=== PATIENT | female | born 1995 | race Caucasian/White ===

== ENCOUNTER 2017-01-13 17:29 | Emergency (ER) | payer OTHER ==
[~2017-01-13] VITALS: Ht 124.4 cm; Wt 43.5 kg
[2017-01-13] MEDS ORDERED: CLINDAMYCIN HC300 MG PO (19:04)
== END 2017-01-13 19:09 | disposition home or self-care (01) ==
LOC: ED 17:29
DX: J02.0 Streptococcal pharyngitis (principal); Z88.0 Allergy status to penicillin

== ENCOUNTER 2017-08-11 17:12 | Emergency (ER) | payer OTHER ==
[~2017-08-11] VITALS: Ht 149.8 cm; Wt 40.8 kg
[~2017-08-11 17:12] MED LIST: CLINDAMYCIN HC300 MG PO
[2017-08-11] MEDS ORDERED: OMNICEF300 MG PO (17:32)
== END 2017-08-11 17:26 | disposition home or self-care (01) ==
LOC: ED 17:12
DX: H66.92 Otitis media, unspecified, left ear (principal); R03.0 Elevated blood-pressure reading, without diagnosis of hypertension; Z88.0 Allergy status to penicillin

== ENCOUNTER 2017-09-13 19:05 | Emergency (ER) | payer OTHER ==
[~2017-09-13] VITALS: Ht 149.8 cm; Wt 41.7 kg
[~2017-09-13 19:05] MED LIST changes: +OMNICEF300 MG PO
== END 2017-09-13 21:57 | disposition home or self-care (01) ==
LOC: ED 19:05
DX: S00.83XA Contusion of other part of head, initial encounter (principal); Z88.0 Allergy status to penicillin; V49.9XXA Car occupant (driver) (passenger) injured in unspecified traffic accident, initial encounter; Y93.89 Activity, other specified; Y92.89 Other specified places as the place of occurrence of the external cause; Y99.8 Other external cause status

== ENCOUNTER 2018-02-16 15:47 | Emergency (ER) | payer OTHER ==
[~2018-02-16] VITALS: Ht 149.8 cm; Wt 43.1 kg
[2018-02-16] MEDS ORDERED: EFFEXOR XR75 M1 PO (15:52)
[2018-02-16] MEDS ORDERED: [UNRECOGNIZED DRUG - REMARK] PO (15:53)
[2018-02-16] MEDS ORDERED: VIBRAMYCIN100 MG PO (16:16)
[2018-02-16] MEDS ORDERED: LIDEX 0.05% CRE15 GM T (16:16)
== END 2018-02-16 16:29 | disposition home or self-care (01) ==
LOC: ED 15:47
DX: S80.262A Insect bite (nonvenomous), left knee, initial encounter (principal); Z88.0 Allergy status to penicillin; Z79.899 Other long term (current) drug therapy; W57.XXXA Bitten or stung by nonvenomous insect and other nonvenomous arthropods, initial encounter; Y93.89 Activity, other specified; Y92.89 Other specified places as the place of occurrence of the external cause; Y99.8 Other external cause status

== ENCOUNTER 2018-07-22 17:41 | Emergency (ER) | payer OTHER ==
[~2018-07-22] VITALS: Wt 42.6 kg
[~2018-07-22 17:41] MED LIST changes: +EFFEXOR XR75 M1 PO; +LIDEX 0.05% CRE15 GM T; +VIBRAMYCIN100 MG PO; +[UNRECOGNIZED DRUG - REMARK] PO
[2018-07-22] MEDS ORDERED: FLONASE ALLERG9.9 ML NAS (17:46)
[2018-07-22] MEDS ORDERED: PREDNISONE10 MG PO (17:46)
[2018-07-22] MEDS ORDERED: CLARITIN10 MG PO (17:46)
[2018-08-08] MEDS ORDERED: ZYRTEC10 MG PO (19:09)
[2018-08-08] MEDS ORDERED: ZITHROMAX250 MG PO (19:09)
== END 2018-07-22 17:53 | disposition home or self-care (01) ==
LOC: ED 17:41
DX: B34.9 Viral infection, unspecified (principal); R03.0 Elevated blood-pressure reading, without diagnosis of hypertension; Z88.0 Allergy status to penicillin; Z79.899 Other long term (current) drug therapy

== ENCOUNTER 2022-02-11 21:31 | Emergency (ER) | payer OTHER ==
[~2022-02-11] VITALS: Ht 149.8 cm; Wt 47.6 kg
[~2022-02-11 21:31] MED LIST changes: +CLARITIN10 MG PO; +FLONASE ALLERG9.9 ML NAS; +PREDNISONE10 MG PO; +ZITHROMAX250 MG PO; +ZYRTEC10 MG PO
[2022-02-11] MEDS ORDERED: CETIRIZINE10 MG PO (22:17)
[2022-02-11] MEDS ORDERED: ZITHROMAX250 MG PO (22:17)
== END 2022-02-11 22:22 | disposition home or self-care (01) ==
LOC: ED 21:31
DX: J32.8 Other chronic sinusitis (principal); Z88.0 Allergy status to penicillin; Z79.899 Other long term (current) drug therapy